=== PATIENT | male | born 1990 | race Asian ===

== ENCOUNTER → 2022-07-23 16:47 | Outpatient (CLI) | payer OTHER, SELFPAY ==
--- NOTE | 2022-07-23 | DI.MRI.S_ITS ---
PROCEDURE: MR HEAD/BRAIN WO CON INDICATIONS: HEADACHE, UNSPECIFIED TECHNIQUE: Noncontrast axial T1 spin echo, axial T2 fast spin echo, sagittal and axial FLAIR, coronal T2 fast spin echo, axial gradient echo, axial diffusion and ADC through the brain. COMPARISON: None. FINDINGS: Image quality: Excellent. CSF Spaces: Basal cisterns are patent. No extra-axial fluid collections. Ventricles are normal in size and shape. Brain: No intracranial masses or hemorrhage. Garcia/white matter interface is normal. Brainstem appears normal. Diffusion-weighted images demonstrate no acute ischemic insult. No chronic ischemic insults. Normal intravascular flow voids are present. Skull and face: Calvarium has normal marrow signal. Orbits appear normal. Sinuses: Sinuses demonstrate small mucous retention cysts versus polyps in the maxillary sinuses bilaterally. Minimal ethmoid and frontal sinus mucosal thickening is present. No fluid levels. IMPRESSION: 1. No acute intracranial process. Dictated by: Esme Riggins M.D. on 07/24/2022 at 11:50 Approved by: Esme Riggins M.D. on 07/24/2022 at 11:51
== END ==
PROVIDERS: Referring Provider Psychiatry & Neurology Neurology; Visit Provider Psychiatry & Neurology Neurology
DX: R51.9 Headache, unspecified (principal); R42 Dizziness and giddiness; S06.9X0D Unspecified intracranial injury without loss of consciousness, subsequent encounter
CPT/HCPCS: 70551

== ENCOUNTER → 2022-09-23 17:54 | Outpatient (CLI) | payer OTHER, SELFPAY ==
--- NOTE | 2022-09-23 | DI.MRI.S_ITS ---
PROCEDURE: MR THORACIC SPINE WO/W CON INDICATIONS: Full incontinence of feces; Headaches/RULE OUT MS TECHNIQUE: Noncontrast sagittal T1 spin echo and T2 fast spin echo, sagittal STIR, axial T1 and T2 fast spin echo through the thoracic spine. After the administration of contrast, axial and sagittal T1 spin echo with fat saturation through the thoracic spine. COMPARISON: Merged With [facility], MR, MR CERVICAL SPINE WO/W CON, 09/23/2022, 18:35. Merged With [facility], MR, MR LUMBAR SPINE WO/W CON, 09/23/2022, 18:35. FINDINGS: Image quality: Motion is present on multiple sequences limiting areas of fine detail evaluation. Alignment and curvature: There is normal bony alignment. Marrow: Marrow is of normal overall signal. No acute vertebral body compression fractures. Spinal cord: Visualized spinal cord is of normal signal and size, without abnormal enhancement. Paraspinous soft tissues: No paravertebral masses or abnormal enhancement. Miscellaneous: Central canal and foramina appear widely patent at all scanned levels. IMPRESSION: No disc bulge, spinal stenosis or foraminal narrowing. Dictated by: Esme Riggins M.D. on 09/24/2022 at 9:01 Approved by: Esme Riggins M.D. on 09/24/2022 at 9:03
--- NOTE | 2022-09-23 | DI.MRI.S_ITS ---
PROCEDURE: MR CERVICAL SPINE WO/W CON INDICATIONS: Full incontinence of feces; Headaches/RULE OUT MS TECHNIQUE: Noncontrast sagittal T1 spin echo and T2 fast spin echo, sagittal STIR, sagittal PD fast spin echo, foraminal oblique sagittal T2 fast spin echo, axial gradient echo or T2 fast spin echo through the cervical spine. After the administration of contrast, sagittal and axial T1 spin echo with fat saturation through the cervical spine. COMPARISON: [facility], MR, MR THORACIC SPINE WO/W CON, 09/23/2022, 18:35. [facility], MR, MR HEAD/BRAIN WO CON, 09/23/2022, 18:10. [facility], MR, MR HEAD/BRAIN WO CON, 07/23/2022, 17:18. FINDINGS: Image quality: Significant motion artifact is present particularly on sagittal sequences limiting evaluation cord signal. Alignment and curvature: There is normal bony alignment. Marrow: Marrow demonstrates normal overall signal. Spinal cord: Visualized spinal cord is normal in size, without white matter lesions. No suspicious intramedullary enhancement. No cerebellar tonsillar herniation. Paraspinous soft tissues: No paravertebral masses or suspicious enhancement. C2-C3: No disc bulge, spinal stenosis or foraminal narrowing. C3-C4: No disc bulge, spinal stenosis or foraminal narrowing. C4-C5: No disc bulge, spinal stenosis or foraminal narrowing. C5-C6: No disc bulge, spinal stenosis or foraminal narrowing. C6-C7: No disc bulge, spinal stenosis or foraminal narrowing. C7-T1: No disc bulge, spinal stenosis or foraminal narrowing. IMPRESSION: Significant motion artifact. However, no disc bulge, spinal stenosis or foraminal narrowing. Dictated by: Esme Riggins M.D. on 09/24/2022 at 9:04 Approved by: Esme Riggins M.D. on 09/24/2022 at 9:08
--- NOTE | 2022-09-23 | DI.MRI.S_ITS ---
PROCEDURE: MR LUMBAR SPINE WO/W CON INDICATIONS: Full incontinence of feces; Headaches/RULE OUT MS TECHNIQUE: Noncontrast sagittal T1 spin echo and T2 fast spin echo, sagittal STIR, axial T1 and T2 fast spin echo through the lumbar spine. In cases with scoliosis, additional coronal T2 fast spin echo may be performed. After the administration of contrast, sagittal and axial T1 spin echo with fat saturation through the lumbar spine. COMPARISON: [facility], , MR THORACIC SPINE WO/W CON, 09/23/2022, 18:35. FINDINGS: Image quality: Motion is present on multiple sequences, limiting areas of fine detail evaluation. Alignment and curvature: There is normal bony alignment. Transitional anatomy appears to be present. For purposes of this exam, vertebral bodies are labeled 1 through 5. Prior to any surgical intervention, full x-ray spine series is recommended for further evaluation. Marrow: Marrow is of normal overall signal. No acute vertebral body compression fractures. No suspicious marrow enhancement. Spinal cord: Conus medullaris terminates at the L1 level. Visualized spinal cord demonstrates normal signal, without suspicious enhancement. Paraspinous soft tissues: No paravertebral masses or abnormal enhancement. T12-L1: No disc bulge, spinal stenosis or foraminal narrowing. L1-L2: No disc bulge, spinal stenosis or foraminal narrowing. L2-L3: No disc bulge, spinal stenosis or foraminal narrowing. L3-L4: Minimal disc bulge without spinal stenosis. Minimal left foraminal narrowing. L4-L5: No disc bulge, spinal stenosis or foraminal narrowing. L5-S1: No disc bulge, spinal stenosis or foraminal narrowing. IMPRESSION: Minimal early degenerative changes. Dictated by: Esme Riggins M.D. on 09/24/2022 at 8:44 Approved by: Esme Riggins M.D. on 09/24/2022 at 9:01
--- NOTE | 2022-09-23 | DI.MRI.S_ITS ---
PROCEDURE: MR HEAD/BRAIN WO CON INDICATIONS: Full incontinence of feces; Headaches/RULE OUT MS TECHNIQUE: Noncontrast axial T1 spin echo, axial T2 fast spin echo, sagittal and axial FLAIR, coronal T2 fast spin echo, axial gradient echo, axial diffusion and ADC through the brain. COMPARISON: [facility], MR, MR CERVICAL SPINE WO/W CON, 09/23/2022, 18:35. [facility], MR, MR HEAD/BRAIN WO CON, 07/23/2022, 17:18. FINDINGS: Image quality: Excellent. CSF Spaces: Basal cisterns are patent. No extra-axial fluid collections. Ventricles are normal in size and shape. Brain: No intracranial masses or hemorrhage. Garcia/white matter interface is normal. Brainstem appears normal. There is a single focus of subcortical white matter hyperintense FLAIR signal within the right frontotemporal lobe on series 7, image 14. It is unchanged compared to prior exam. Diffusion-weighted images demonstrate no acute ischemic insult. No chronic ischemic insults. Normal intravascular flow voids are present. Skull and face: Calvarium has normal marrow signal. Orbits appear normal. Sinuses: Sinuses and mastoids are clear. IMPRESSION: 1. No acute intracranial process. 2. Stable punctate subcortical white matter hyperintense focus in the right fronto- temporal lobe. This is overall nonspecific. This could be related to prior focus of infection/inflammation/ischemia, migraine sequela, demyelinating disease or potentially vasculitis. Dictated by: Esme Riggins M.D. on 09/24/2022 at 8:35 Approved by: Esme Riggins M.D. on 09/24/2022 at 8:43
== END ==
PROVIDERS: Referring Provider Psychiatry & Neurology Neurology; Visit Provider Psychiatry & Neurology Neurology
DX: R20.0 Anesthesia of skin (principal); R15.9 Full incontinence of feces; R32 Unspecified urinary incontinence; S06.9X0D Unspecified intracranial injury without loss of consciousness, subsequent encounter; R42 Dizziness and giddiness; R51.9 Headache, unspecified
CPT/HCPCS: 70551; 72156; 72157; 72158; A9579